=== PATIENT | male | born 1970 | race African-American/Black ===

== ENCOUNTER 2016-08-18 13:09 | Emergency (ER) | payer SELFPAY ==
[~2016-08-18] VITALS: Ht 160 cm; Wt 76.2 kg
[~2016-08-18 13:09] MED LIST: ASPI-535 PO; BACTDS PO; CEPH-443 PO; CEPH500C PO; CYCL-319 PO; IBUP-1542 PO; IND50 PO; NAPR-260 PO; NICO-512 TRANSDERM; PANT40TA4 PO
[2016-08-18 13:12] VITALS: Ht 160 cm; Wt 76.2 kg
== END 2016-08-18 20:12 | disposition left against medical advice (07) ==
LOC: E/R 13:09
DX: Z53.21 Procedure and treatment not carried out due to patient leaving prior to being seen by health care provider (principal)

== ENCOUNTER 2016-10-10 18:50 | Emergency (ER) | payer OTHER ==
[~2016-10-10] VITALS: Ht 180.3 cm; Wt 70.5 kg
[2016-10-10 19:02] VITALS: Ht 180.3 cm; Wt 70.5 kg
[2016-10-10] MEDS ORDERED: IBUPROFEN 600 MG TAB PO ONE (21:00)
--- NOTE | 2016-10-10 21:06 | RADRPT ---
PROCEDURE: XR Right Ankle. CLINICAL INDICATION: Trauma. Right ankle pain. TECHNIQUE: 3 views. Frontal, lateral, and oblique. COMPARISON: None. FINDINGS: There is no fracture or dislocation. There is marked lateral soft tissue swelling. Articular surfaces are intact. There is no lytic or blastic lesion. There is no radiopaque foreign body. IMPRESSION: 1. Marked lateral soft tissue swelling. 2. Otherwise normal images of the right ankle. RPTAT: QQ .Addi Luna MD, MD Date Time Electronically viewed and signed by .Addi Luna MD, MD on 10/10/2016 21:06 .R/
[2016-10-10] MEDS ORDERED: IBUP-1542 PO (21:15)
--- NOTE | 2016-10-10 21:26 | ERD ---
ER Documentation Chief Complaint Date/Time DATE: 10/10/16 TIME: 21:23 Chief Complaint R ankle injury @ 1800 playing basketball HPI This is a 45-year-old male presents to the ER with right ankle pain after he inverted his ankle playing basketball earlier today. Patient states that his ankle immediately be came swollen began to hurt. Patient able to bear weight on ankle however it is painful. In is described as achy in nature it is nonradiating. Patient has not tried anything for the pain. He denies any numbness or tingling of his foot. ROS 12 point review of systems was done, all negative except per HPI. Medications Home Meds Active Scripts Ibuprofen* (Motrin*) 600 Mg Tab, 600 MG PO Q6, #30 TAB Prov:ABHIJEET BURKETT 10/10/16 Sulfamethoxazole-Trimethoprim* (Bactrim* DS) 800-160 Mg Tab, 1 TAB PO BID, #14 TAB Prov:ALBAN CAMP PA-C 06/19/16 Cephalexin* (Cephalexin*) 500 Mg Capsule, 500 MG PO Q6, #28 CAP Prov:ALBAN CAMP PA-C 06/19/16 Sulfamethoxazole-Trimethoprim* (Bactrim* DS) 800-160 Mg Tab, 1 TAB PO BID for 7 Days, TAB Prov:JESSICA GAMBOA PA-C 06/02/16 Cephalexin* (Keflex*) 500 Mg Capsule, 500 MG PO QID for 7 Days, CAP Prov:JESSICA GAMBOA PA-C 06/02/16 Ibuprofen* (Motrin*) 600 Mg Tab, 600 MG PO Q6, #30 TAB Prov:JESSICA GAMBOA PA-C 06/02/16 Cyclobenzaprine Hcl* (Cyclobenzaprine Hcl*) 10 Mg Tablet, 10 MG PO TID, #15 TAB Prov:ANA HOBBS PA-C 04/01/16 Naproxen* (Naprosyn*) 500 Mg Tablet, 500 MG PO BID Y for PAIN AND/OR INFLAMMATION, #30 TAB Prov:ANA HOBBS PA-C 04/01/16 Pantoprazole* (Pantoprazole*) 40 Mg Tabec, 40 MG PO DAILY@06, #30 TAB Prov:TRENTON OCASIO MD 10/26/15 Nicotine* (Nicoderm* Patch) 1 Patch Patch, 1 PATCH TRANSDERM DAILY, #30 PATCH Prov:TRENTON OCASIO MD 10/26/15 Indomethacin* (Indocin*) 50 Mg Cap, 50 MG PO TID, #30 CAP Prov:TRENTON OCASIO MD 10/26/15 Aspirin Ec (Aspir 81) 81 Mg Tablet.dr, 81 MG PO DAILY, #30 TAB Prov:TRENTON OCASIO MD 10/26/15 Allergies Allergies: Coded Allergies: No Known Allergy (Unverified , 10/10/16) PMhx/Soc History of Surgery: No Anesthesia Reaction: No Hx Neurological Disorder: No Hx Respiratory Disorders: Yes (Asthma) Hx Cardiac Disorders: Yes (Heart problem pt does not know) Hx Psychiatric Problems: No Hx Miscellaneous Medical Probl: No Hx Alcohol Use: Yes Hx Substance Use: No Hx Tobacco Use: Yes Smoking Status: Never smoker Physical Exam Vitals Vital Signs Date Time Temp Pulse Resp B/P Pulse Ox O2 Delivery O2 Flow Rate FiO2 10/10/16 19:02 98.7 88 16 139/79 100 Physical Exam GENERAL: The patient is well developed and appropriate for usual state of health , in no apparent distress. HEENT: Atraumatic. CHEST: Clear to auscultation bilaterally. There are no rales, wheezes or rhonchi. HEART: Regular rate and rhythm. No murmurs, clicks, rubs or gallops. ABDOMEN: Soft, nontender and nondistended. Good bowel sounds. No rebound or guarding. No gross peritonitis. No gross organomegaly or masses. No Granger sign or McBurney point tenderness. BACK: No midline or flank tenderness. EXTREMITIES: Right ankle: There is swelling to the lateral malleolus, tender to palpation to the lateral malleolus. Patient is not tender to palpation to the medial malleolus. Positive tarsal twits tests. Normal strength and sensation of the foot. Normal range of motion of the foot. No tibia-fibula pain on palpation. NEURO: Alert and oriented. SKIN: The skin is warm and dry. Results 24 hrs Current Medications Medications (Trade) Dose Ordered Sig/Jesi Route PRN Reason Start Time Stop Time Status Last Admin Dose Admin Ibuprofen (Motrin) 600 mg ONCE ONCE PO 10/10/16 21:00 10/10/16 21:01 DC 10/10/16 20:41 Procedures/MDM Patient was put in a posterior ankle immobilizer. He was neurovascularly intact before and after stent application. He was given crutches. This is a 45-year-old male that presents to the ER with right ankle pain and he inverted his ankle while playing basketball earlier today. At this time there is no evidence of fracture or dislocation. Patient likely has an ankle sprain. She has full range of motion of his extremity and he is neurovascularly intact. Suspicion for deep space infection is low. Patient is afebrile extremely well appearing. His vital signs are all stable. Patient will be sent home with ibuprofen. Needs to follow-up with his primary care doctor within 1-2 days or return to ER sooner symptoms worsen. My medical decision making [place] with the patient he understands and agrees with plan. Departure Diagnosis: Primary Impression: Ankle sprain Condition: Stable Patient Instructions: Treating Ankle Sprains Additional Instructions: Call your primary care doctor TOMORROW for an appointment during the next 1-2 days.See the doctor sooner or return here if your condition worsens before your appointment time. ABHIJEET BURKETT Oct 10, 2016 21:26
== END 2016-10-10 21:40 | disposition home or self-care (01) ==
LOC: FTE 18:50
DX: S93.401A Sprain of unspecified ligament of right ankle, initial encounter (principal); J45.909 Unspecified asthma, uncomplicated; X50.9XXA Other and unspecified overexertion or strenuous movements or postures, initial encounter; Y92.9 Unspecified place or not applicable; Z79.82 Long term (current) use of aspirin
CPT/HCPCS: 29515; 73610; Z7610

== ENCOUNTER 2016-11-15 10:48 | Emergency (ER) | payer OTHER ==
[~2016-11-15] VITALS: Ht 165.1 cm; Wt 78.0 kg
[2016-11-15 10:50] VITALS: Ht 165.1 cm; Wt 78.0 kg
[2016-11-15 11:54] LABS: URINE BLOOD (Dip) POC Negative (NEGATIVE)
[2016-11-15] MEDS ORDERED: NAPR-260 PO (11:58)
--- NOTE | 2016-11-15 12:46 | ERD ---
ER Documentation Chief Complaint Date/Time DATE: 11/15/16 TIME: 12:41 Chief Complaint right ankle pain, here c/o same a month ago HPI This is a 45-year-old male who presents to the emergency department today complaining of continued right ankle pain. Patient also states he has some back pain. States he thinks he might have a problem with his kidneys. States he did follow-up with his primary care doctor about his ankle but nothing was ever done. States that he smokes cigarettes. States that he would like a prescription for Chantix. States he drinks half a bottle of vodka a night to "help him sleep" he is not taking any medication for his pain. Denies any dysuria, hematuria. Denies any new trauma. ROS All systems reviewed and are negative except as per history of present illness. Medications Home Meds Active Scripts Naproxen* (Naprosyn*) 500 Mg Tablet, 500 MG PO BID Y for PAIN AND/OR INFLAMMATION, #30 TAB Prov:BLANCA HARRISON PA-C 11/15/16 Ibuprofen* (Motrin*) 600 Mg Tab, 600 MG PO Q6, #30 TAB Prov:ABHIJEET BURKETT 10/10/16 Sulfamethoxazole-Trimethoprim* (Bactrim* DS) 800-160 Mg Tab, 1 TAB PO BID, #14 TAB Prov:ALBAN CAMP PA-C 06/19/16 Cephalexin* (Cephalexin*) 500 Mg Capsule, 500 MG PO Q6, #28 CAP Prov:ALBAN CAMP PA-C 06/19/16 Sulfamethoxazole-Trimethoprim* (Bactrim* DS) 800-160 Mg Tab, 1 TAB PO BID for 7 Days, TAB Prov:JESSICA GAMBOA PA-C 06/02/16 Cephalexin* (Keflex*) 500 Mg Capsule, 500 MG PO QID for 7 Days, CAP Prov:JESSICA GAMBOA PA-C 06/02/16 Ibuprofen* (Motrin*) 600 Mg Tab, 600 MG PO Q6, #30 TAB Prov:JESSICA GAMBOA PA-C 06/02/16 Cyclobenzaprine Hcl* (Cyclobenzaprine Hcl*) 10 Mg Tablet, 10 MG PO TID, #15 TAB Prov:ANA HOBBS PA-C 04/01/16 Naproxen* (Naprosyn*) 500 Mg Tablet, 500 MG PO BID Y for PAIN AND/OR INFLAMMATION, #30 TAB Prov:ANA HOBBS PA-C 04/01/16 Pantoprazole* (Pantoprazole*) 40 Mg Tabec, 40 MG PO DAILY@06, #30 TAB Prov:TRENTON OCASIO MD 10/26/15 Nicotine* (Nicoderm* Patch) 1 Patch Patch, 1 PATCH TRANSDERM DAILY, #30 PATCH Prov:TRENTON OCASIO MD 16 Indomethacin* (Indocin*) 50 Mg Cap, 50 MG PO TID, #30 CAP Prov:TRENTON OCASIO MD 16 Aspirin Ec (Aspir 81) 81 Mg Tablet.dr, 81 MG PO DAILY, #30 TAB Prov:TRENTON OCASIO MD 16 Allergies Allergies: Coded Allergies: No Known Allergy (Unverified , 10/10/16) PMhx/Soc History of Surgery: No Anesthesia Reaction: No Hx Neurological Disorder: No Hx Respiratory Disorders: Yes (Asthma) Hx Cardiac Disorders: Yes (Heart problem pt does not know) Hx Psychiatric Problems: No Hx Miscellaneous Medical Probl: No Hx Alcohol Use: Yes Hx Substance Use: No Hx Tobacco Use: Yes Smoking Status: Current every day smoker Physical Exam Vitals Vital Signs Date Time Temp Pulse Resp B/P Pulse Ox O2 Delivery O2 Flow Rate FiO2 11/15/16 10:50 98.1 76 18 121/65 88 Physical Exam Const: No acute distress Head: Atraumatic Eyes: Normal Conjunctiva ENT: Normal External Ears, Nose and Mouth. Neck: Full range of motion..~ No meningismus. Resp: Clear to auscultation bilaterally Cardio: Regular rate and rhythm, no murmurs Skin: No petechiae or rashes Back: No midline tenderness. Bilateral paraspinal tenderness. No CVA tenderness. MSK: Right ankle with no obvious deformity. Mild effusion over lateral malleolus. Full active range of motion. Pulses 2+. Distal neurovascularly intact. Neur: Awake and alert Psych: Normal Mood and Affect Results 24 hrs Laboratory Tests Test 11/15/16 11:55 Bedside Urine pH (LAB) 6.5 Bedside Urine Protein (LAB) Negative Bedside Urine Glucose (UA) Negative Bedside Urine Ketones (LAB) Negative Bedside Urine Blood Negative Bedside Urine Nitrite (LAB) Negative Bedside Urine Leukocyte Esterase (L Negative Procedures/MDM This 45-year-old male who presents to the emergency department today with multiple complaints. Patient was seen here on October 10, 2016 and had a negative ankle x-ray at this time with the exception of some lateral ankle swelling. Patient was diagnosed with an ankle sprain. Patient has not had any new trauma and I do not feel he requires repeat imaging. I do feel the patient would benefit from physical therapy and have explained this to the patient he should get referral from his primary care doctor. Patient was also complaining of some bilateral paraspinal pain and was concerned that there was something wrong with his kidneys. I did obtain a UA that was negative for hematuria or infection. UA is negative. Low suspicion for pyelonephritis or nephrolithiasis. Patient' s back pain was consistent with lumbar strain. When I pressed the patient further he indicated that he had been playing baseball and had been playing a long time a suspect that is from swinging the bat. Patient was also requesting a prescription for Chantix stating that he had gone to smoking cessation class and had been given a certificate for a discount for the Chantix. Patient admitted to drinking half a bottle of vodka every night to help him sleep and I discussed with the patient that Chantix recommendations are to not take if patient drinks alcohol. I have explained this to the patient. I have also explained to the patient that he does need to have regular laboratory work done and that we would not be able to follow him here with that. I explained to him that he needs to go back to where he got his smoking cessation information from or his primary care doctor. Patient was instructed to stop smoking cigarettes as well as stop abusing alcohol. Patient was given an Lopez wrap here in the emergency department. He was also given a prescription for Naprosyn for home. At this time the patient is stable for discharge and outpatient management. Patient should follow up with their PCP in the next 1-2 days. They may return to the emergency department sooner for any persistent or worsening of symptoms. Patient understood and agreed with the plan. Discussed the patient with Dr. Lake and he is in agreement with the plan. Departure Diagnosis: Primary Impression: Multiple complaints Condition: Fair Patient Instructions: Treating Ankle Sprains, Self-Care for Low Back Pain, Smoking Cessation Referrals: YADY AGUILAR MD Additional Instructions: Call your primary care doctor TOMORROW for an appointment during the next 1-2 days.See the doctor sooner or return here if your condition worsens before your appointment time. Take Naprosyn or Tylenol or Motrin for ankle or back pain Apply ice to painful area to help decrease swelling Use Lopez wrap to help decrease swelling. Get referral for physical therapy and referral for smoking Stop drinking alcohol BLANCA HARRISON PA-C November 15, 2016 12:46
== END 2016-11-15 12:05 | disposition home or self-care (01) ==
LOC: FTE 10:48
DX: S93.401A Sprain of unspecified ligament of right ankle, initial encounter (principal); M54.9 Dorsalgia, unspecified; F17.210 Nicotine dependence, cigarettes, uncomplicated; J45.909 Unspecified asthma, uncomplicated; X58.XXXA Exposure to other specified factors, initial encounter; Y92.9 Unspecified place or not applicable; Z79.82 Long term (current) use of aspirin
CPT/HCPCS: 81003; Z7502; 99283

== ENCOUNTER 2017-06-02 10:30 | Emergency (ER) | payer OTHER ==
[~2017-06-02] VITALS: Wt 76.7 kg
[2017-06-02] MEDS ORDERED: KETOROLAC 60 MG INJ IM STA (10:57)
[2017-06-02] MEDS ORDERED: IBUP800T25 PO (11:00)
[2017-06-02] MEDS ORDERED: CYCL-319 PO (11:00)
--- NOTE | 2017-06-02 11:04 | ERD ---
ER Documentation Chief Complaint Chief Complaint "back spasm" HPI Patient is a 46-year-old male who presents with right-sided neck pain that he has had since Thursday. Patient states he slept on it wrong. There is no trauma. No fever, nausea or vomiting. No neck stiffness. He has not taken any medication for this. Pain is worse with movement. ROS All systems reviewed and are negative except as per history of present illness. Medications Home Meds Active Scripts Ibuprofen* (Motrin*) 800 Mg Tab, 800 MG PO Q6, #30 TAB Prov:ALBAN CAMP PA-C 06/02/17 Cyclobenzaprine Hcl* (Cyclobenzaprine Hcl*) 10 Mg Tablet, 10 MG PO TID, #20 TAB Prov:ALBAN CAMP PA-C 06/02/17 Naproxen* (Naprosyn*) 500 Mg Tablet, 500 MG PO BID Y for PAIN AND/OR INFLAMMATION, #30 TAB Prov:BLANCA HARRISON PA-C 11/15/16 Ibuprofen* (Motrin*) 600 Mg Tab, 600 MG PO Q6, #30 TAB Prov:ABHIJEET BURKETT 10/10/16 Sulfamethoxazole-Trimethoprim* (Bactrim* DS) 800-160 Mg Tab, 1 TAB PO BID, #14 TAB Prov:ALBAN CAMP PA-C 06/19/16 Cephalexin* (Cephalexin*) 500 Mg Capsule, 500 MG PO Q6, #28 CAP Prov:ALBAN CAMP PA-C 06/19/16 Sulfamethoxazole-Trimethoprim* (Bactrim* DS) 800-160 Mg Tab, 1 TAB PO BID for 7 Days, TAB Prov:JESSICA GAMBOA PA-C 06/02/16 Cephalexin* (Keflex*) 500 Mg Capsule, 500 MG PO QID for 7 Days, CAP Prov:JESSICA GAMBOA PA-C 06/02/16 Ibuprofen* (Motrin*) 600 Mg Tab, 600 MG PO Q6, #30 TAB Prov:JESSICA GAMBOA PA-C 06/02/16 Cyclobenzaprine Hcl* (Cyclobenzaprine Hcl*) 10 Mg Tablet, 10 MG PO TID, #15 TAB Prov:ANA HOBBS PA-C 04/01/16 Naproxen* (Naprosyn*) 500 Mg Tablet, 500 MG PO BID Y for PAIN AND/OR INFLAMMATION, #30 TAB Prov:ANA HOBBS PA-C 04/01/16 Pantoprazole* (Pantoprazole*) 40 Mg Tabec, 40 MG PO DAILY@06, #30 TAB Prov:TRENTON OCASIO MD 10/26/15 Nicotine* (Nicoderm* Patch) 1 Patch Patch, 1 PATCH TRANSDERM DAILY, #30 PATCH Prov:TRENTON OCASIO MD 10/26/15 Indomethacin* (Indocin*) 50 Mg Cap, 50 MG PO TID, #30 CAP Prov:TRENTON OCASIO MD 16 Aspirin Ec (Aspir 81) 81 Mg Tablet.dr, 81 MG PO DAILY, #30 TAB Prov:TRENTON OCASIO MD 10/26/15 Allergies Allergies: Coded Allergies: No Known Allergy (Unverified , 10/10/16) PMhx/Soc History of Surgery: No Anesthesia Reaction: No Hx Neurological Disorder: No Hx Respiratory Disorders: Yes (Asthma) Hx Cardiac Disorders: Yes (Heart problem pt does not know) Hx Psychiatric Problems: No Hx Miscellaneous Medical Probl: No Hx Alcohol Use: Yes Hx Substance Use: No Hx Tobacco Use: Yes Smoking Status: Never smoker FmHx Family History: No diabetes Physical Exam Vitals Vital Signs Date Time Temp Pulse Resp B/P Pulse Ox O2 Delivery O2 Flow Rate FiO2 06/02/17 10:33 98.9 87 20 145/77 97 Physical Exam INITIAL VITAL SIGNS: Reviewed by me GENERAL: Awake, alert and oriented x 4, well appearing, nontoxic, speaking in full sentences. No acute distress HEAD: Atraumatic NECK: Supple. No masses. Full range of motion. No meningismus. No midline tenderness. EYES: EOMI. PERRL. RESPIRATORY: Clear to auscultation bilaterally. Symmetric chest wall rise. No wheezing or rales. No accessory muscle use. CV: Regular rate and rhythm. No murmurs, rubs, or gallops. Results 24 hrs Current Medications Medications (Trade) Dose Ordered Sig/Jesi Route PRN Reason Start Time Stop Time Status Last Admin Dose Admin Ketorolac Tromethamine (Toradol) 60 mg ONCE STAT IM 06/02/17 10:57 06/02/17 10:58 DC Procedures/MDM Patient has neck pain after sleeping on his side. There is no trauma. Exam is normal. No midline tenderness. He is not taking any medications yet. He was given Toradol here and discharged with ibuprofen and Flexeril. Patient counseled regarding my diagnostic impression and care plan. Prior to discharge all questions answered. Pt agrees with treatment plan and understands strict return precautions. Pt is instructed to follow up with primary care provider within 24-48 hours. Precautionary instructions provided including instructions to return to the ER if not improving or for any worsening or changing symptoms or concerns. Departure Diagnosis: Primary Impression: Cervical strain Condition: Stable Patient Instructions: Back Pain (Acute Or Chronic) Additional Instructions: Call your primary care doctor TOMORROW for an appointment during the next 1-2 days.See the doctor sooner or return here if your condition worsens before your appointment time. ALBAN CAMP PA-C Jun 02, 2017 11:04
[2017-06-02] MEDS ORDERED: HYDR-906 PO (11:12)
== END 2017-06-02 11:15 | disposition home or self-care (01) ==
LOC: FTE 10:30
DX: S16.1XXA Strain of muscle, fascia and tendon at neck level, initial encounter (principal); J45.909 Unspecified asthma, uncomplicated; X58.XXXA Exposure to other specified factors, initial encounter; Y92.9 Unspecified place or not applicable; Z87.891 Personal history of nicotine dependence; Z79.82 Long term (current) use of aspirin
CPT/HCPCS: 96372; J1885; Z7502

== ENCOUNTER 2017-06-02 15:10 | Emergency (ER) | payer OTHER ==
[~2017-06-02] VITALS: Wt 86.4 kg
[~2017-06-02 15:10] MED LIST changes: +HYDR-906 PO; +IBUP800T25 PO
--- NOTE | 2017-06-02 15:44 | ERD ---
ER Documentation Chief Complaint Chief Complaint noticed r."elbow fluid" while working out a gym HPI Patient is a 46-year-old male who was seen here earlier for a different orthotic complain and is now complaining of right elbow pain. He states he is at the gym he notices some trauma. Denies any numbness or tingling. Denies any loss of range of motion. Has not taken medications. ROS All systems reviewed and are negative except as per history of present illness. Medications Home Meds Active Scripts Hydrocodone/Acetaminophen ([place] 5-325 Tablet) 1 Each Tablet, 1 TAB PO Q6H Y for PAIN, #7 TAB Prov:ALBAN CAMP PA-C 06/02/17 Ibuprofen* (Motrin*) 800 Mg Tab, 800 MG PO Q6, #30 TAB Prov:ALBAN CAMP PA-C 06/02/17 Cyclobenzaprine Hcl* (Cyclobenzaprine Hcl*) 10 Mg Tablet, 10 MG PO TID, #20 TAB Prov:ALBAN CAMP PA-C 06/02/17 Naproxen* (Naprosyn*) 500 Mg Tablet, 500 MG PO BID Y for PAIN AND/OR INFLAMMATION, #30 TAB Prov:BLANCA HARRISON PA-C 11/15/16 Ibuprofen* (Motrin*) 600 Mg Tab, 600 MG PO Q6, #30 TAB Prov:ABHIJEET BURKETT 10/10/16 Sulfamethoxazole-Trimethoprim* (Bactrim* DS) 800-160 Mg Tab, 1 TAB PO BID, #14 TAB Prov:ALBAN CAMP PA-C 06/19/16 Cephalexin* (Cephalexin*) 500 Mg Capsule, 500 MG PO Q6, #28 CAP Prov:ALBAN CAMP PA-C 06/19/16 Sulfamethoxazole-Trimethoprim* (Bactrim* DS) 800-160 Mg Tab, 1 TAB PO BID for 7 Days, TAB Prov:JESSICA GAMBOA PA-C 06/02/16 Cephalexin* (Keflex*) 500 Mg Capsule, 500 MG PO QID for 7 Days, CAP Prov:JESSICA GAMBOA PA-C 06/02/16 Ibuprofen* (Motrin*) 600 Mg Tab, 600 MG PO Q6, #30 TAB Prov:JESSICA GAMBOA PA-C 06/02/16 Cyclobenzaprine Hcl* (Cyclobenzaprine Hcl*) 10 Mg Tablet, 10 MG PO TID, #15 TAB Prov:ANA HOBBS PA-C 04/01/16 Naproxen* (Naprosyn*) 500 Mg Tablet, 500 MG PO BID Y for PAIN AND/OR INFLAMMATION, #30 TAB Prov:ANA HOBBS PA-C 04/01/16 Pantoprazole* (Pantoprazole*) 40 Mg Tabec, 40 MG PO DAILY@06, #30 TAB Prov:TRENTON OCASIO MD 10/26/15 Nicotine* (Nicoderm* Patch) 1 Patch Patch, 1 PATCH TRANSDERM DAILY, #30 PATCH Prov:TRENTNO OCASIO MD 16 Indomethacin* (Indocin*) 50 Mg Cap, 50 MG PO TID, #30 CAP Prov:TRENTON OCASIO MD 16 Aspirin Ec (Aspir 81) 81 Mg Tablet.dr, 81 MG PO DAILY, #30 TAB Prov:TRENTON OCASIO MD 16 Allergies Allergies: Coded Allergies: No Known Allergy (Unverified , 10/10/16) PMhx/Soc History of Surgery: No Anesthesia Reaction: No Hx Neurological Disorder: No Hx Respiratory Disorders: Yes (Asthma) Hx Cardiac Disorders: Yes (Heart problem pt does not know) Hx Psychiatric Problems: No Hx Miscellaneous Medical Probl: No Hx Alcohol Use: Yes Hx Substance Use: No Hx Tobacco Use: Yes Smoking Status: Never smoker FmHx Family History: diabetes Physical Exam Vitals Vital Signs Date Time Temp Pulse Resp B/P Pulse Ox O2 Delivery O2 Flow Rate FiO2 06/02/17 15:13 98.0 87 20 129/62 100 Physical Exam Const: [] Head: Atraumatic Eyes: Normal Conjunctiva ENT: Normal External Ears, Nose and Mouth. Neck: Full range of motion..~ No meningismus. Resp: Clear to auscultation bilaterally Cardio: Regular rate and rhythm, no murmurs Abd: Soft, non tender, non distended. Normal bowel sounds Skin: No petechiae or rashes Back: No midline or flank tenderness Ext: Right elbow no erythema no edema, full range of motion no bony abnormalities, sensation to light touch is intact, nontender Procedures/MDM Patient has nontraumatic elbow pain. He is ambulatory neurovascular intact. No evidence of bursitis or septic joint or cellulitis. He is discharged he has anti-inflammatories at home. Patient counseled regarding my diagnostic impression and care plan. Prior to discharge all questions answered. Pt agrees with treatment plan and understands strict return precautions. Pt is instructed to follow up with primary care provider within 24-48 hours. Precautionary instructions provided including instructions to return to the ER if not improving or for any worsening or changing symptoms or concerns. Departure Diagnosis: Primary Impression: Elbow pain Condition: Stable Patient Instructions: Sprain Elbow Additional Instructions: Call your primary care doctor TOMORROW for an appointment during the next 1-2 days.See the doctor sooner or return here if your condition worsens before your appointment time. ALBAN CAMP PA-C Jun 02, 2017 15:44
== END 2017-06-02 16:11 | disposition home or self-care (01) ==
LOC: FTE 15:10
DX: M25.521 Pain in right elbow (principal); J45.909 Unspecified asthma, uncomplicated; Z87.891 Personal history of nicotine dependence
CPT/HCPCS: 99284

== ENCOUNTER 2017-06-27 16:00 | Emergency (ER) | payer OTHER ==
[~2017-06-27] VITALS: Ht 177.8 cm; Wt 77.4 kg
[2017-06-27 16:06] VITALS: Ht 177.8 cm; Wt 77.4 kg
[2017-06-27] MEDS ORDERED: IBUPROFEN 600 MG TAB PO ONE (17:00)
[2017-06-27] MEDS ORDERED: LIDOCAINE 1% (MDV) 20 ML INJ SC ONE (17:00)
--- NOTE | 2017-06-27 17:47 | RADRPT ---
PROCEDURE: XR right Shoulder. CLINICAL INDICATION: Trauma TECHNIQUE: Two views of the right shoulder are available for review. COMPARISON: None available FINDINGS: There is no acute fracture or dislocation. The glenohumeral and acromioclavicular joints are intact . The soft tissues around the right shoulder are unremarkable. There is no acute fracture of the visualized right ribs. The visualized right lung is clear. RPTAT: [place] IMPRESSION: 1. No acute bony abnormality. .Mirta Marie MD, MD Date Time Electronically viewed and signed by .Mirta Marie MD, MD on 06/27/2017 17:47 .T/
--- NOTE | 2017-06-27 17:49 | RADRPT ---
PROCEDURE: X-RAY RIGHT ELBOW CLINICAL INDICATION: Trauma TECHNIQUE: 3 views of the right elbow are available for review COMPARISON: None available FINDINGS: There is no acute fracture or dislocation. The joint spaces are maintained. There is no joint effusi on. There is a small osseous spur along the olecranon posteriorly at the ulnohumeral joint. There is also a small enthesophyte within the posterior olecranon with overlying soft tissue swelling. RPTAT: QQ IMPRESSION: 1. No acute fracture. 2. Small enthesophyte within the olecranon with overlying soft tissue swelling which can be seen wit h triceps tendinopathy and olecranon bursitis. 3. Mild osteoarthrosis of the ulnohumeral joint with osseous spurring within the olecranon. .Mirta Marie MD, MD Date Time Electronically viewed and signed by .Mirta Marie MD, on 06/27/2017 17:49 .T/
[2017-06-27] MEDS ORDERED: IBUP-1542 PO (17:53)
--- NOTE | 2017-06-27 17:58 | ERD ---
ER Documentation Chief Complaint Chief Complaint rt shoulder , rt elbow pain s/p fall from skateboard HPI 46-year-old male presents with a history of falling off his skateboard today. He is on his right shoulder. He has additional complaint of some swelling in his right elbow area from previous trauma due to falling off a skateboard months ago. Denies restricted range of motion weakness or head injury or neck pain or bleeding or lacerations. ROS All systems reviewed and are negative except as per history of present illness. Medications Home Meds Active Scripts Ibuprofen* (Motrin*) 600 Mg Tab, 600 MG PO Q6, #15 TAB Prov:MARIELA HAYDEN MD 06/27/17 Hydrocodone/Acetaminophen ([place] 5-325 Tablet) 1 Each Tablet, 1 TAB PO Q6H Y for PAIN, #7 TAB Prov:ALBAN CAMP PA-C 06/02/17 Ibuprofen* (Motrin*) 800 Mg Tab, 800 MG PO Q6, #30 TAB Prov:ALBAN CAMP PA-C 06/02/17 Cyclobenzaprine Hcl* (Cyclobenzaprine Hcl*) 10 Mg Tablet, 10 MG PO TID, #20 TAB Prov:ALBAN CAMP PA-C 06/02/17 Naproxen* (Naprosyn*) 500 Mg Tablet, 500 MG PO BID Y for PAIN AND/OR INFLAMMATION, #30 TAB Prov:BLANCA HARRISON PA-C 11/15/16 Ibuprofen* (Motrin*) 600 Mg Tab, 600 MG PO Q6, #30 TAB Prov:ABHIJEET BURKETT 10/10/16 Sulfamethoxazole-Trimethoprim* (Bactrim* DS) 800-160 Mg Tab, 1 TAB PO BID, #14 TAB Prov:ALBAN CAMP PA-C 06/19/16 Cephalexin* (Cephalexin*) 500 Mg Capsule, 500 MG PO Q6, #28 CAP Prov:ALBAN CAMP PA-C 06/19/16 Sulfamethoxazole-Trimethoprim* (Bactrim* DS) 800-160 Mg Tab, 1 TAB PO BID for 7 Days, TAB Prov:JESSICA GAMBOA PA-C 06/02/16 Cephalexin* (Keflex*) 500 Mg Capsule, 500 MG PO QID for 7 Days, CAP Prov:JESSICA GAMBOA PA-C 06/02/16 Ibuprofen* (Motrin*) 600 Mg Tab, 600 MG PO Q6, #30 TAB Prov:JESSICA GAMBOA PA-C 06/02/16 Cyclobenzaprine Hcl* (Cyclobenzaprine Hcl*) 10 Mg Tablet, 10 MG PO TID, #15 TAB Prov:ANA HOBBS PA-C 04/01/16 Naproxen* (Naprosyn*) 500 Mg Tablet, 500 MG PO BID Y for PAIN AND/OR INFLAMMATION, #30 TAB Prov:ANA HOBBS PA-C 04/01/16 Pantoprazole* (Pantoprazole*) 40 Mg Tabec, 40 MG PO DAILY@06, #30 TAB Prov:TRENTON OCASIO MD 10/26/15 Nicotine* (Nicoderm* Patch) 1 Patch Patch, 1 PATCH TRANSDERM DAILY, #30 PATCH Prov:TRENTON OCASIO MD 10/26/15 Indomethacin* (Indocin*) 50 Mg Cap, 50 MG PO TID, #30 CAP Prov:TRENTON OCASIO MD 16 Aspirin Ec (Aspir 81) 81 Mg Tablet.dr, 81 MG PO DAILY, #30 TAB Prov:TRENTON OCASIO MD 16 Allergies Allergies: Coded Allergies: No Known Allergy (Unverified , 10/10/16) PMhx/Soc History of Surgery: No Anesthesia Reaction: No Hx Neurological Disorder: No Hx Respiratory Disorders: No Hx Cardiac Disorders: No Hx Psychiatric Problems: No Hx Miscellaneous Medical Probl: No Hx Alcohol Use: Yes Hx Substance Use: No Hx Tobacco Use: Yes Smoking Status: Never smoker Physical Exam Vitals Vital Signs Date Time Temp Pulse Resp B/P Pulse Ox O2 Delivery O2 Flow Rate FiO2 06/27/17 16:06 98.2 97 18 135/81 98 Physical Exam Const: [] Alert, [id number]. Head: Atraumatic Eyes: Normal Conjunctiva ENT: Normal External Ears, Nose and Mouth. Neck: Full range of motion..~ No meningismus. Resp: Clear to auscultation bilaterally Cardio: Regular rate and rhythm, no murmurs Abd: Soft, non tender, non distended. Normal bowel sounds Skin: No petechiae or rashes Back: No midline or flank tenderness Ext: No cyanosis, or edema. Tenderness diffusely in the right shoulder capsule without deformities, no restricted range of motion or weakness. There is some fluctuance and swelling on the olecranon of the right elbow without warmth, erythema, deformities or bony tenderness. Neur: Awake and alert Psych: Normal Mood and Affect Results 24 hrs Current Medications Medications (Trade) Dose Ordered Sig/Jesi Route PRN Reason Start Time Stop Time Status Last Admin Dose Admin Ibuprofen (Motrin) 600 mg ONCE ONCE PO 06/27/17 17:00 06/27/17 17:01 DC 06/27/17 16:50 Lidocaine (Xylocaine 1% (Mdv) 20 ml) 20 ml ONCE ONCE SC 06/27/17 17:00 06/27/17 17:01 DC 06/27/17 16:49 Procedures/MDM X-ray Elbow 3V Interpreted by me: Fat Pads: Normal Bones: No fracture Joints: No dislocation Foreign body: None. Impression-calcifications in the right olecranon area suggestive of olecranon bursitis or tendinitis otherwise no acute fractures or dislocations. X-ray Shoulder 3V Interpreted by me: Bones: No fracture Joints: No dislocation Foreign body: None impression-normal right shoulder x-ray Patient is requesting drainage of right olecranon bursitis. Procedure note via sterile technique 1 cc lidocaine was injected locally. 6 cc of serosanguineous fluid was aspirated. Dressing was applied and patient tolerated procedure well. Shows no evidence of fracture, dislocation, cellulitis, septic arthritis. Patient will be treated with Vicoprofen, return precautions for redness, fevers , new worsening symptoms. Patient was placed in a right elbow Lopez bandage and was neurovascular intact after the Lopez bandage. Departure Diagnosis: Primary Impression: Olecranon bursitis Laterality: right Qualified Code: M70.21 - Olecranon bursitis of right elbow Additional Impression: Shoulder sprain Encounter type: initial encounter Shoulder sprain type: unspecified sprain Laterality: right Qualified Code: S43.401A - Sprain of right shoulder, unspecified shoulder sprain type, initial encounter Condition: Stable Patient Instructions: Shoulder Sprain , Bursitis, Elbow (Olecranon) Additional Instructions: No fractures or acute findings on x-ray. Recheck for new or worsening symptoms or primary care doctor. MARIELA HAYDEN MD Jun 27, 2017 17:58
== END 2017-06-27 19:25 | disposition home or self-care (01) ==
LOC: FTE 16:00
DX: M70.21 Olecranon bursitis, right elbow (principal); S43.401A Unspecified sprain of right shoulder joint, initial encounter; V00.131A Fall from skateboard, initial encounter; Y92.9 Unspecified place or not applicable; Y93.9 Activity, unspecified; Z79.82 Long term (current) use of aspirin; Z87.891 Personal history of nicotine dependence
CPT/HCPCS: 20605; 73030; 73080; Z7502; Z7610

== ENCOUNTER → 2017-06-28 | Emergency (ER) | payer OTHER ==
[~2017-06-28] VITALS: Ht 177.8 cm; Wt 76.6 kg
[2017-06-28 16:10] VITALS: Ht 177.8 cm; Wt 76.6 kg
--- NOTE | 2017-06-28 17:10 | ERD ---
ER Documentation Chief Complaint Chief Complaint right elbow pain was drained yesterday HPI The patient is a 46-year-old male, presenting to the ER requesting for the right elbow olecranon bursitis drained, it was drained yesterday in the ER. He denies any new trauma, denies any pain, fever, limited range of motion ROS All systems reviewed and are negative except as per history of present illness. Medications Home Meds Active Scripts Ibuprofen* (Motrin*) 600 Mg Tab, 600 MG PO Q6, #15 TAB Prov:MARIELA HAYDEN MD 06/27/17 Hydrocodone/Acetaminophen ([place] 5-325 Tablet) 1 Each Tablet, 1 TAB PO Q6H Y for PAIN, #7 TAB Prov:ALBAN CAMP PA-C 06/02/17 Ibuprofen* (Motrin*) 800 Mg Tab, 800 MG PO Q6, #30 TAB Prov:ALBAN CAMP PA-C 06/02/17 Cyclobenzaprine Hcl* (Cyclobenzaprine Hcl*) 10 Mg Tablet, 10 MG PO TID, #20 TAB Prov:ALBAN CAMP PA-C 06/02/17 Naproxen* (Naprosyn*) 500 Mg Tablet, 500 MG PO BID Y for PAIN AND/OR INFLAMMATION, #30 TAB Prov:BLANCA HARRISON PA-C 11/15/16 Ibuprofen* (Motrin*) 600 Mg Tab, 600 MG PO Q6, #30 TAB Prov:ABHIJEET BURKETT 10/10/16 Sulfamethoxazole-Trimethoprim* (Bactrim* DS) 800-160 Mg Tab, 1 TAB PO BID, #14 TAB Prov:ALBAN CAMP PA-C 06/19/16 Cephalexin* (Cephalexin*) 500 Mg Capsule, 500 MG PO Q6, #28 CAP Prov:ALBAN CAMP PA-C 06/19/16 Sulfamethoxazole-Trimethoprim* (Bactrim* DS) 800-160 Mg Tab, 1 TAB PO BID for 7 Days, TAB Prov:JESSICA GAMBOA PA-C 06/02/16 Cephalexin* (Keflex*) 500 Mg Capsule, 500 MG PO QID for 7 Days, CAP Prov:JESSICA GAMBOA PA-C 06/02/16 Ibuprofen* (Motrin*) 600 Mg Tab, 600 MG PO Q6, #30 TAB Prov:JESSICA GAMBOA PA-C 06/02/16 Cyclobenzaprine Hcl* (Cyclobenzaprine Hcl*) 10 Mg Tablet, 10 MG PO TID, #15 TAB Prov:ANA HOBBS PA-C 04/01/16 Naproxen* (Naprosyn*) 500 Mg Tablet, 500 MG PO BID Y for PAIN AND/OR INFLAMMATION, #30 TAB Prov:ANA HOBBS PA-C 04/01/16 Pantoprazole* (Pantoprazole*) 40 Mg Tabec, 40 MG PO DAILY@06, #30 TAB Prov:TRENTON OCASIO MD 16 Nicotine* (Nicoderm* Patch) 1 Patch Patch, 1 PATCH TRANSDERM DAILY, #30 PATCH Prov:TRENTON OCASIO MD 16 Indomethacin* (Indocin*) 50 Mg Cap, 50 MG PO TID, #30 CAP Prov:TRENTON OCASIO MD 16 Aspirin Ec (Aspir 81) 81 Mg Tablet.dr, 81 MG PO DAILY, #30 TAB Prov:TRENTON OCASIO MD 16 Allergies Allergies: Coded Allergies: No Known Allergy (Unverified , 10/10/16) PMhx/Soc History of Surgery: No Anesthesia Reaction: No Hx Neurological Disorder: No Hx Respiratory Disorders: No Hx Cardiac Disorders: No Hx Psychiatric Problems: No Hx Miscellaneous Medical Probl: No Hx Alcohol Use: Yes Hx Substance Use: No Hx Tobacco Use: Yes Physical Exam Vitals Vital Signs Date Time Temp Pulse Resp B/P Pulse Ox O2 Delivery O2 Flow Rate FiO2 06/28/17 16:10 97.7 78 18 142/89 97 Physical Exam Const: No acute distress. Head: Atraumatic. Eyes: Normal Conjunctiva. ENT: Normal External Ears, Nose and Mouth. Neck: Full range of motion. No meningismus. Resp: Clear to auscultation bilaterally. Cardio: Regular rate and rhythm. Abd: Soft, non distended, normal bowel sounds, non tender. Skin: No petechiae or rashes. Back: No midline or flank tenderness. Ext: A small effusion at the right elbow, not warmth, no erythema, nontender, full range of motion Neur: Awake and alert. No focal deficit Psych: Normal Mood and Affect. Procedures/MDM MEDICAL MAKING DECISION: The patient is a 46-year-old male, presenting with chronic right olecranon bursitis for more than 2 months, is stable for medicine follow-up The differential diagnoses considered include but are not limited to septic arthritis, cellulitis, abscess Departure Diagnosis: Primary Impression: Olecranon bursitis Condition: Good Comments I discussed the findings with the patient. I advised the patient to follow-up with the primary physician in about 1-2 days, sooner if needed and return if any concern. He was referred to the on-call orthopedist Dr. Chou in 2-3 days The patient's blood pressure was elevated (>120/80) but appears stable without evidence of hypertension emergency or urgency. The patient was counseled about the risks of hypertension and urged to pursue outpatient monitoring and therapy within a week with their primary care physician. Disclaimer: Inadvertent spelling and grammatical errors are likely due to EHR/ dictation software use and do not reflect on the overall quality of patient care. Also, please note that the electronic time recorded on this note does not necessarily reflect the actual time of the patient encounter. BELEN KINCAID MD Jun 28, 2017 17:10
== END | disposition left against medical advice (07) ==
LOC: E/R 15:55
DX: M70.21 Olecranon bursitis, right elbow (principal); Y93.9 Activity, unspecified; Z87.891 Personal history of nicotine dependence; Z79.82 Long term (current) use of aspirin
CPT/HCPCS: 99282

== ENCOUNTER 2017-06-29 10:01 | Emergency (ER) | payer OTHER ==
[~2017-06-29] VITALS: Ht 180.3 cm; Wt 97.9 kg
[2017-06-29 10:17] VITALS: Ht 180.3 cm; Wt 97.9 kg
--- NOTE | 2017-06-29 16:10 | ERD ---
ER Documentation Chief Complaint Chief Complaint Pt here with R elbow bursitis X 3 days. HPI 46-year-old male patient with a past medical history of chronic right elbow complaints presents to the ED complaining of a right elbow bursitis that has been going on intermittently for the past 2 months. Patient was seen here on June 26 and had his site is drained on the right elbow from a chronic injury when he was skateboarding 2 months ago. Patient has not followed up with his orthopedic physician. Patient states that he feels like it is getting bigger. Patient was also seen here yesterday for the same complaint and was stable for outpatient management. Denies any fever, chills, nausea, vomiting, loss of sensation, loss of range of motion, weakness, numbness or tingling. ROS All systems reviewed and are negative except as per history of present illness. Medications Home Meds Active Scripts Ibuprofen* (Motrin*) 600 Mg Tab, 600 MG PO Q6, #15 TAB Prov:MARIELA HAYDEN MD 06/27/17 Hydrocodone/Acetaminophen ([place] 5-325 Tablet) 1 Each Tablet, 1 TAB PO Q6H Y for PAIN, #7 TAB Prov:ALBAN CAMP PA-C 06/02/17 Ibuprofen* (Motrin*) 800 Mg Tab, 800 MG PO Q6, #30 TAB Prov:ALBAN CAMP PA-C 06/02/17 Cyclobenzaprine Hcl* (Cyclobenzaprine Hcl*) 10 Mg Tablet, 10 MG PO TID, #20 TAB Prov:ALBAN CAMP PA-C 06/02/17 Naproxen* (Naprosyn*) 500 Mg Tablet, 500 MG PO BID Y for PAIN AND/OR INFLAMMATION, #30 TAB Prov:BLANCA HARRISON PA-C 11/15/16 Ibuprofen* (Motrin*) 600 Mg Tab, 600 MG PO Q6, #30 TAB Prov:ABHIJEET BURKETT 10/10/16 Sulfamethoxazole-Trimethoprim* (Bactrim* DS) 800-160 Mg Tab, 1 TAB PO BID, #14 TAB Prov:ALBAN CAMP PA-C 06/19/16 Cephalexin* (Cephalexin*) 500 Mg Capsule, 500 MG PO Q6, #28 CAP Prov:ALBAN CAMP PA-C 06/19/16 Sulfamethoxazole-Trimethoprim* (Bactrim* DS) 800-160 Mg Tab, 1 TAB PO BID for 7 Days, TAB Prov:JESSICA GAMBOA Nando BEARD 06/02/16 Cephalexin* (Keflex*) 500 Mg Capsule, 500 MG PO QID for 7 Days, CAP Prov:JESSICA GAMBOA Nando BEARD 06/02/16 Ibuprofen* (Motrin*) 600 Mg Tab, 600 MG PO Q6, #30 TAB Prov:JESSICA GAMBOA Nando BEARD 06/02/16 Cyclobenzaprine Hcl* (Cyclobenzaprine Hcl*) 10 Mg Tablet, 10 MG PO TID, #15 TAB Prov:ANA HOBBS PA-C 04/01/16 Naproxen* (Naprosyn*) 500 Mg Tablet, 500 MG PO BID Y for PAIN AND/OR INFLAMMATION, #30 TAB Prov:ANA HOBBS PA-C 04/01/16 Pantoprazole* (Pantoprazole*) 40 Mg Tabec, 40 MG PO DAILY@06, #30 TAB Prov:TRENTON OCASIO MD 10/26/15 Nicotine* (Nicoderm* Patch) 1 Patch Patch, 1 PATCH TRANSDERM DAILY, #30 PATCH Prov:TRENTON OCASIO MD 10/26/15 Indomethacin* (Indocin*) 50 Mg Cap, 50 MG PO TID, #30 CAP Prov:TRENTON OCASIO MD 10/26/15 Aspirin Ec (Aspir 81) 81 Mg Tablet.dr, 81 MG PO DAILY, #30 TAB Prov:TRENTON OCASIO MD 10/26/15 Allergies Allergies: Coded Allergies: No Known Allergy (Unverified , 10/10/16) PMhx/Soc Medical and Surgical Hx: pt denies Medical Hx, pt denies Surgical Hx History of Surgery: No Anesthesia Reaction: No Hx Neurological Disorder: No Hx Respiratory Disorders: No Hx Cardiac Disorders: No Hx Psychiatric Problems: No Hx Miscellaneous Medical Probl: No Hx Alcohol Use: Yes (Pt reports dringking heavy alcohol every day) Hx Substance Use: No Hx Tobacco Use: No Smoking Status: Never smoker Physical Exam Vitals Vital Signs Date Time Temp Pulse Resp B/P Pulse Ox O2 Delivery O2 Flow Rate FiO2 06/29/17 10:17 97.8 81 18 129/87 100 Physical Exam Const: [id number], well-nourished. In no acute distress. Head: Atraumatic, normocephalic Eyes: Normal Conjunctiva without injection ENT: Normal external ear, nose and mouth. Neck: Full range of motion. No meningismus. Resp: Clear to auscultation bilaterally. No wheezing, rhonchi, rales, or crackles. No accessory muscle use. No retractions. Cardio: Regular rate and rhythm, no murmurs Skin: No petechiae or rashes Back: No midline tenderness. No CVA tenderness. Ext: No cyanosis, or edema. Cap refill less than 2 seconds. Distal pulses intact bilaterally. Slightly fluctuant bursitis noted on the right olecranon with no warmth to touch, erythema, edema. Full range motion with flexion, extension, supination, pronation of bilateral elbows. Neur: Awake and alert. Normal gait and coordination. Muscle strength 5/5. Sensation intact bilaterally. Psych: Normal Mood and Affect Procedures/MDM 46 year old male patient with chronic elbow pain presents to the ED complaining of bursitis of the right elbow. Patient is afebrile and nontoxic-appearing. Patient has normal vital signs. Patient was seen here yesterday and he stated that he was not given Dr. Chou's resource therefore it was given to patient here today. Patient is appropriate for outpatient management and should follow-up with Dr. Chou and to call for an appointment. Patient has full range of motion. No warmth to touch. No erythema or edema. Patient was able to supinate, pronate, flex and extend his bilateral elbows. Patient is neurovascularly intact. Patient's extremity symptoms have stabilized while they have been evaluated in the department and are appropriate for outpatient follow up. No evidence of fractures, dislocations, compartment syndrome, neurologic injury, vascular injury, open joint, open fracture, tendon laceration, septic arthritis , osteomyelitis, DVT, foreign body, or other emergent conditions. Discharge medications: Ibuprofen Follow up with primary care physician in 1-2 days for a referral to see an orthopedic physician for further care and treatment. Nursing Home resources also given to patient. Instructed patient to return to the ED sooner for any worsening symptoms. Patient's questions were answered. Patient understood and agreed with discharge plan. Patient discharged stable. Departure Diagnosis: Primary Impression: Bursitis Bursitis location: elbow Elbow bursitis location: olecranon bursitis Laterality: right Qualified Code: M70.21 - Olecranon bursitis of right elbow Condition: Stable Patient Instructions: Bursitis, Elbow (Olecranon) Referrals: HARPREET CHOU [facility] YOU HAVE RECEIVED A MEDICAL SCREENING EXAM AND THE RESULTS INDICATE THAT YOU DO NOT HAVE A CONDITION THAT REQUIRES URGENT TREATMENT IN THE EMERGENCY DEPARTMENT. FURTHER EVALUATION AND TREATMENT OF YOUR CONDITION CAN WAIT UNTIL YOU ARE SEEN IN YOUR DOCTORS OFFICE WITHIN THE NEXT 1-2 DAYS. IT IS YOUR RESPONSIBILITY TO MAKE AN APPOINTMENT FOR FOLOW-UP CARE. IF YOU HAVE A PRIMARY DOCTOR --you should call your primary doctor and schedule an appointment IF YOU DO NOT HAVE A PRIMARY DOCTOR YOU CAN CALL OUR PHYSICIAN REFERRAL HOTLINE AT IF YOU CAN NOT AFFORD TO SEE A PHYSICIAN YOU CAN CHOSE FROM THE FOLLOWING [facility] [address] [employer] [address] [facility] [address] [employer] [facility] [address] [facility] [address] [facility] [address] [facility] [address] [facility]. [facility] YOU HAVE RECEIVED A MEDICAL SCREENING EXAM AND THE RESULTS INDICATE THAT YOU DO NOT HAVE A CONDITION THAT REQUIRES URGENT TREATMENT IN THE EMERGENCY DEPARTMENT. FURTHER EVALUATION AND TREATMENT OF YOUR CONDITION CAN WAIT UNTIL YOU ARE SEEN IN YOUR DOCTORS OFFICE WITHIN THE NEXT 1-2 DAYS. IT IS YOUR RESPONSIBILITY TO MAKE AN APPOINTMENT FOR FOLOW-UP CARE. IF YOU HAVE A PRIMARY DOCTOR --you should call your primary doctor and schedule and appointment IF YOU DO NOT HAVE A PRIMARY DOCTOR YOU CAN CALL OUR PHYSICIAN REFERRAL HOTLINE AT . IF YOU CAN NOT AFFORD TO SEE A PHYSICIAN YOU CAN CHOSE FROM THE FOLLOWING [facility] INSTITUTIONS: [facility] [address] [place] [address] [facility] [address] [place] [address] [facility] [address] [place] [address] [facility] URGENT CARE/SPECIALTIES Additional Instructions: FOLLOW UP WITH YOUR PRIMARY CARE PHYSICIAN for a referral to Dr. Chou, software testing specialist. Return to this facility if you are not improving as expected. JESSICA GAMBOA PA-C Jun 29, 2017 16:10
== END 2017-06-29 12:30 | disposition home or self-care (01) ==
LOC: FTE 10:01
DX: M70.21 Olecranon bursitis, right elbow (principal); Y93.51 Activity, roller skating (inline) and skateboarding
CPT/HCPCS: 99282

== ENCOUNTER 2017-08-01 21:52 | Emergency (ER) | END 2017-08-01 23:23 | disposition home or self-care (01) ==

== ENCOUNTER 2017-12-19 13:24 | Emergency (ER) | END 2017-12-19 16:21 | disposition home or self-care (01) ==

== ENCOUNTER 2018-01-02 11:13 | Emergency (ER) | END 2018-01-02 13:33 | disposition home or self-care (01) ==

== ENCOUNTER 2018-02-25 06:39 | Emergency (ER) | END 2018-02-25 08:45 | disposition home or self-care (01) ==

== ENCOUNTER 2018-05-01 09:33 | Emergency (ER) | END 2018-05-01 11:20 | disposition home or self-care (01) ==